=== PATIENT | female | born 1965 | race Caucasian/White ===

== ENCOUNTER → 2024-04-14 12:42 | Outpatient (REF) | payer BC, SELFPAY | LOC: HWRAD 12:42 | PROVIDERS: ATTENDING PHYSICIAN Nurse Practitioner Primary Care | DX: F17.211 Nicotine dependence, cigarettes, in remission (principal); F17.290 Nicotine dependence, other tobacco product, uncomplicated; Z80.1 Family history of malignant neoplasm of trachea, bronchus and lung; R63.4 Abnormal weight loss | CPT/HCPCS: 71260; 74177; Q9967 ==

== ENCOUNTER → 2024-05-03 18:23 | Outpatient (REF) | payer BC, SELFPAY | LOC: RCS 18:23 | PROVIDERS: ATTENDING PHYSICIAN Nurse Practitioner Primary Care; FAMILY PHYSICIAN Internal Medicine Geriatric Medicine | DX: F17.211 Nicotine dependence, cigarettes, in remission (principal); E78.2 Mixed hyperlipidemia; J44.9 Chronic obstructive pulmonary disease, unspecified; R07.89 Other chest pain | CPT/HCPCS: 93306 ==

== ENCOUNTER → 2024-05-04 07:05 | Outpatient (REF) | payer BC, SELFPAY ==
[2024-05-04] MEDS: FLUSH (NSS) 1 FLUSH IV (08:50)
[2024-05-04] MEDS: LEXISCAN 0.400000000000000022 MG IV (08:50)
== END ==
LOC: RCS 07:05
PROVIDERS: ATTENDING PHYSICIAN Nurse Practitioner Primary Care; FAMILY PHYSICIAN Internal Medicine Geriatric Medicine
DX: J44.9 Chronic obstructive pulmonary disease, unspecified (principal); E78.2 Mixed hyperlipidemia; R07.89 Other chest pain; F17.211 Nicotine dependence, cigarettes, in remission
CPT/HCPCS: 78452; 93017; A9500; J2785

== ENCOUNTER → 2024-05-09 06:24 | Day surgery (SDC) | payer BC, SELFPAY | LOC: GI 06:24 | PROVIDERS: ATTENDING PHYSICIAN Internal Medicine Gastroenterology | DX: Z12.11 Encounter for screening for malignant neoplasm of colon (principal); K62.1 Rectal polyp; D12.0 Benign neoplasm of cecum; R63.4 Abnormal weight loss; D49.0 Neoplasm of unspecified behavior of digestive system; K57.30 Diverticulosis of large intestine without perforation or abscess without bleeding; R13.10 Dysphagia, unspecified; K22.89 Other specified disease of esophagus; K31.89 Other diseases of stomach and duodenum; K29.50 Unspecified chronic gastritis without bleeding; K31.A19 Gastric intestinal metaplasia without dysplasia, unspecified site; K22.70 Barrett's esophagus without dysplasia; K64.8 Other hemorrhoids | CPT/HCPCS: 45380; 43239; 88305; 88342 ==

== ENCOUNTER 2024-06-23 06:02 | Inpatient (IN) | payer BC, SELFPAY ==
[2024-06-08 10:13] LABS: Hematocrit 38.1 % (37.0-47.0); Hemoglobin 13.5 g/dL (12.0-16.0); Mean Corp Hgb Conc. 35.4 g/dL (33.0-37.0); Mean Corpuscular Hgb 33.3 pg (27.0-31.0); Mean Corpuscular Volume 93.8 fL (81.0-99.0); Mean Platelet Volume 11.1 fL (7.4-10.4); Platelet Count 200 10^3/uL (130-400); Red Blood Cell Count 4.06 10^6/uL (4.20-5.40); White Blood Cell Count 4.5 10^3/uL (4.8-10.8)
[2024-06-08 10:29] LABS: INR 0.89; PT 12.1 Sec (11.4-14.6)
[2024-06-08 10:30] LABS: APTT 27.7 Sec (23.4-35.0)
[2024-06-08 10:54] VITALS: BMI 24.2
[2024-06-08 11:04] LABS: Glycohemoglobin (HgbA1c) 5.1 % (4.0-5.6)
[2024-06-08 12:16] LABS: ALT (SGPT) 33 U/L (0-35); AST (SGOT) 39 U/L (14-36); Albumin 4.9 g/dl (3.5-5.0); Alkaline Phosphatase 69 U/L (38-126); Blood Urea Nitrogen 14 mg/dl (7-17); Calcium 9.9 mg/dl (8.4-10.2); Carbon Dioxide 24 mmol/L (22-30); Chloride 107 mmol/L (98-107); Estimated Creatinine Clearance 77 ml/min; Glucose 90 mg/dl (70-99); Potassium 4.6 mmol/L (3.5-5.1); Sodium 140 mmol/L (135-145); Total Bilirubin 0.5 mg/dl (0.2-1.3); Total Protein 7.3 g/dl (6.3-8.2); eGFR > 60.00
[2024-06-23] VITALS (14 sets, daily range): BP systolic 100–134; BP diastolic 53–79; BMI 24.3
[2024-06-23] MEDS: NORMOSOL-R 1000 IV ×3 (06:40→21:56)
[2024-06-23] MEDS: TYLENOL 1000 MG PO (06:43)
[2024-06-23] MEDS: ENTEREG 12 MG PO (06:43)
[2024-06-23] MEDS: HEPARIN 5000 UNITS SC (06:43)
--- NOTE | 2024-06-23 11:02 | W.IMMPOSTOP ---
Addendum entered and electronically signed by Willie Clement MD 06/23/24 11:17:
~15mm benign appearing lesion on the right lateral abdominal wall excised with grossly negative margins and sent for pathology
Original Note:
Surgical Immed Post Op Note
-
Primary Surgeon: Carlos Clement MD
Assistants: GLORY Ross & YASMIN Estrada
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
Post-op Diagnosis: Same
Procedure Performed: Robotic right colectomy with isosperistaltic intracorporeal anastomosis
Anesthesia Type: GET
Specimen / Cultures: Right colon and portion of the omentum
Estimated Blood Loss: 15cc
Complications: None
Operative Findings: No evidence of metastatic disease
Patient's family updated.
--- NOTE | 2024-06-23 11:06 | SUR.PHASEI ---
Rec'd unresponsive in bed flat, oral airway in mary well
--- NOTE | 2024-06-23 11:19 | SUR.PHASEI ---
More alert, very sleepy, airway out mary well, oriented x 3 by RN, reassured
--- NOTE | 2024-06-23 11:36 | SUR.PHASEI ---
arouses easily, denites pain c/obeing cold, warm blankets given mary well
[2024-06-23] MEDS: DILAUDID 0.25 MG IV (11:41)
--- NOTE | 2024-06-23 11:48 | SUR.PHASEI ---
More alert, quickly falls back to sleep, med for pain mary well
--- NOTE | 2024-06-23 12:02 | SUR.PHASEI ---
sleeping arouses easily, comfortable, report to [facility] lunch relief
[2024-06-23] MEDS: TORADOL 15 MG IV ×3 (12:53→23:53)
[2024-06-23] MEDS: TYLENOL 650 MG PO ×4 (12:53→23:53)
--- NOTE | 2024-06-23 13:07 | PTCARENOTE ---
Patient received from PACU in bed; IVF infusing; Patient on 2L nasal cannula, now on room air; Patient states pain is severe, see MAR; Patient denies nausea/vomiting at this time; Four laparoscopic sites and one low transverse abdominal incision
open to air with surgical glue present; Patient alert to self, place, and time; Patient is cooperative but intermittently agitated when being asked questions for admission, states 'these are questions you ask people when they have cancer', patient
informed that admission questions are standard and every person admitted to the hospital is asked these questions regardless of diagnosis; When asked admission questions regarding alcohol consumption patient stated she goes to happy hour every day,
states she drinks at least four drinks per day but sometimes more, patient denies being treated for alcohol withdrawal in the past; Patient states 'I am going through a lot right now'; Patient denies suicidal and homicidal ideation; Dr. Clement
notified of alcohol consumption per protocol, MSAS initiated; Call dai within reach; Bed in lowest position, wheels locked; Assessment ongoing
[2024-06-23] MEDS: DILAUDID 0.5 MG IV ×2 (14:28→20:28)
[2024-06-23] MEDS: FOLVITE 1 MG PO (14:28)
[2024-06-23] MEDS: THIAMINE INJECTION 200 MG IV (20:29)
[2024-06-24] VITALS (7 sets, daily range): BP systolic 88–108; BP diastolic 44–59; BMI 25.7
[2024-06-24] MEDS: DILAUDID 0.5 MG IV (00:30)
[2024-06-24] MEDS: TYLENOL PO (05:08)
[2024-06-24] MEDS: TORADOL 15 MG IV ×4 (06:17→22:51)
[2024-06-24] MEDS: DILAUDID 0.25 MG IV ×2 (06:22→13:37)
[2024-06-24 07:06] LABS: % Basophils 0.3 % (0-2); % Eosinophils 0.1 % (0-6); % Immature Granulocytes 0.3 % (0-0.5); % Lymphocytes 25.5 % (20.5-51.1); % Monocytes 8.2 % (1.7-9.3); % Neutrophils 65.6 % (42.2-75.2); Absolute Lymphocytes 1.8 10^3/uL (1.2-3.4); Absolute Monocytes 0.6 10^3/uL (0.1-0.6); Absolute Neutrophils 4.5 10^3/uL (1.4-6.5); Hematocrit 28.5 % (37.0-47.0); Hemoglobin 10.1 g/dL (12.0-16.0); Mean Corp Hgb Conc. 35.4 g/dL (33.0-37.0); Mean Corpuscular Hgb 33.7 pg (27.0-31.0); Nucleated Red Blood Cells % 0 %; Platelet Count 174 10^3/uL (130-400); Red Cell Dist. Width 12.2 % (11.5-14.5); White Blood Cell Count 6.9 10^3/uL (4.8-10.8)
[2024-06-24 07:16] LABS: Blood Urea Nitrogen 4 mg/dl (7-17); Calcium 8.8 mg/dl (8.4-10.2); Carbon Dioxide 24 mmol/L (22-30); Chloride 104 mmol/L (98-107); Estimated Creatinine Clearance 77 ml/min; Glucose 98 mg/dl (70-99); Magnesium 2.2 mg/dl (1.6-2.3); Phosphorus 3.6 mg/dl (2.5-4.5); Potassium 3.9 mmol/L (3.5-5.1); Sodium 134 mmol/L (135-145); eGFR > 60.00
[2024-06-24] MEDS: NORMOSOL-R 1000 IV (07:32)
[2024-06-24] MEDS: PROTONIX 40 MG PO (07:34)
[2024-06-24] MEDS: TYLENOL 650 MG PO ×5 (07:34→22:51)
[2024-06-24] MEDS: ENTEREG 12 MG PO ×2 (07:34→20:42)
[2024-06-24] MEDS: LOW STRENGTH ASPIRIN 81 MG PO (07:35)
[2024-06-24] MEDS: THIAMINE INJECTION 200 MG IV ×2 (07:35→20:41)
[2024-06-24] MEDS: FOLVITE 1 MG PO (07:35)
[2024-06-24] MEDS: SYMBICORT 80/4.5 MCG INHALER 2 PUFF INH ×2 (08:08→18:08)
--- NOTE | 2024-06-24 09:34 | CM ---
CM met with pt at bedside.
Prior to admission pt resides alone in a three story dwelling with few steps to enter.
Ind with adls, ind with ambulation using no AD. No DME in home. + [employer].
PCP is Bethany Bryant and pharmacy is [facility] [phone]
Pt reports drinking daily after passing away one year ago. Drinks beer daily. Declines to report how many, shares has been slowing down. Declines etoh abuse resources. Denies hx of etoh rehab. CM left contact info should pt reconsider.
Reports having family (sisters) and friend support at pr.
Discharge dispo home no needs.
--- NOTE | 2024-06-24 11:48 | W.PN.CRS1 ---
Today's Communication / Plan
-
Advance diet
Assessment/Plan
-
58 yo female with a neoplastic polyp at the appendicial orifice now POD #1 Robotic right colectomy with isoperistaltic intracorporeal anastomosis
AFVSS
Tolerating clears
Doing well post op
--Advance to LRD
--D/C ortiz for voiding trial
--D/C IVF
--Multimodal analgesics
--Daily etoh by hx: continue CIWA protocol/thiamine/folic acid
--Lovenox and SCDs for VTE ppx
Tentative d/c later today vs tomorrow pending diet tolerance and pain control
Subjective Data
Procedure
Robotic right colectomy with isoperistaltic intracorporeal anastomosis
Subjective Data
Date of Service: June 24, 2024
Patient seen and examined at bedside with Dr. Clement. Gagan n/v. Doing well with clears. ABD discomfort minimal. Passing flatus
Objective Data
-
Vital Signs
Temp Pulse Resp BP Pulse Ox
98.4 F 58 14 96/59 99
06/24/24 07:30 06/24/24 08:12 06/24/24 08:12 06/24/24 07:30 06/24/24 08:12
Intake & Output
06/23/24 06/24/24 06/25/24
06:59 06:59 06:59
Intake Total 3745 / 3745 400 / 400
Output Total 3150 / 3150 300 / 300
Balance 595 / 595 100 / 100
Intake:
Oral fluids 3120 / 3120
IV fluids (Total) 625 / 625 400 / 400
Normosol-R 1,000 ml @ 100 mls/ 25 / 25
hr IV .Q10H VINICIO Rx#:[id number]
Output:
Urine, Ortiz 3150 / 3150 300 / 300
Lab Results
06/24/24 06:23
06/24/24 06:23
Physical Exam
-
General: No Acute Distress
Abdomen: Soft, Non Distended and Tender (minimal to lower incisions)
Skin: Warm and Dry
Wound: No Signs of Infection and Dressing in Place (dermabond intact)
[2024-06-24] MEDS: LOVENOX 40 MG SC (17:30)
[2024-06-24] MEDS: ULTRAM 50 MG PO (17:50)
[2024-06-24] MEDS: FLUSH (NSS) 2 FLUSH IV (20:42)
[2024-06-25] MEDS: TYLENOL PO (05:13)
[2024-06-25 06:00] VITALS: BMI 26.3
[2024-06-25] MEDS: TORADOL 15 MG IV ×2 (06:11→12:11)
[2024-06-25] MEDS: ULTRAM 50 MG PO ×2 (06:11→12:11)
[2024-06-25 07:17] VITALS: BP 115/57
[2024-06-25] MEDS: ENTEREG 12 MG PO (07:54)
[2024-06-25] MEDS: PROTONIX 40 MG PO (07:54)
[2024-06-25] MEDS: FOLVITE 1 MG PO (07:54)
[2024-06-25] MEDS: THIAMINE INJECTION 200 MG IV (07:56)
[2024-06-25] MEDS: TYLENOL 650 MG PO ×2 (07:56→12:11)
[2024-06-25] MEDS: LOW STRENGTH ASPIRIN 81 MG PO (07:56)
[2024-06-25] MEDS: SYMBICORT 80/4.5 MCG INHALER INH (11:02)
--- NOTE | 2024-06-25 12:48 | W.PN.CRS1 ---
Today's Communication / Plan
-
Discharge
Assessment/Plan
-
58 yo female with a neoplastic polyp at the appendicial orifice now POD #2 Robotic right colectomy with isoperistaltic intracorporeal anastomosis
AFVSS
Tolerating clears
Doing well post op
-- Okay for discharge. I reviewed diet, activity, medications, wound care and follow-up.
-- Final path is pending
Subjective Data
Procedure
Robotic right colectomy with isoperistaltic intracorporeal anastomosis
Subjective Data
Date of Service: June 25, 2024
She stayed last night due to some abdominal discomfort. She feels much better today and wishes to go home. She is tolerating a low residue diet and her bowels are functioning.
Objective Data
-
Vital Signs
Temp Pulse Resp BP Pulse Ox
98.8 F 66 16 115/57 95
06/25/24 07:17 06/25/24 07:17 06/25/24 07:17 06/25/24 07:17 06/25/24 08:00
Intake & Output
06/24/24 06/25/24 06/26/24
06:59 06:59 06:59
Intake Total 3745 / 3745 2800 / 2800
Output Total 3150 / 3150 1700 / 1700
Balance 595 / 595 1100 / 1100
Intake:
Oral fluids 3120 / 3120 2400 / 2400
IV fluids (Total) 625 / 625 400 / 400
Normosol-R 1,000 ml @ 100 mls/ 25 / 25
hr IV .Q10H VINICIO Rx#:[id number]
Output:
Urine, Roman 3150 / 3150 300 / 300
Urine, Voided 1400 / 1400
Other:
How many times incontinent 1
MODERATE amount urine
Lab Results
06/24/24 06:23
06/24/24 06:23
Physical Exam
-
General: No Acute Distress
Abdomen: Soft, Non Distended and Non Tender
Extremities: No Calf Tenderness
Wound: No Signs of Infection
--- NOTE | 2024-06-25 12:50 | W.DS.TRANS ---
Addendum entered and electronically signed by SHERRILL Sellers 06/30/24 09:53:
dictated #[id number]
Original Note:
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
-
Discharge Instructions:
Discharge Diagnosis/Procedures Robotic right colectomy
Diet Low Fiber
Activity No strenuous activity
Additional Activity Do not lift over 10lbs
Driving Restrictions No driving for 24 hours
Bathing Restrictions OK to Shower
Wound Care Ok to shower and wash incisions gently with soap
and water. Allow the glue to flake off on its
own over the next 2-3 weeks
Instructions:
Stand-Alone Forms:
Changes to Home Medications: No
Discharge Medications:
DC Medications w/original date entered in [facility]
albuterol sulfate 90 mcg/actuation aerosol inhaler 2 puff inhalation QID PRN sob 06/01/24
aspirin 81 mg capsule 81 mg PO DAILY Blood Clot Prevention/Tx 06/01/24
collagen 1 dose PO DAILY Supplement 06/01/24
fluticasone furoate 50 mcg-vilanterol 25 mcg/dose inhalation powder (Breo Ellipta) 1 ea inhalation DAILY Lung/Breathing Issues 06/01/24
multivitamin 1 tab PO DAILY Supplement 06/01/24
omeprazole 40 mg capsule,delayed release 40 mg PO DAILY Gastrointestinal Issue 06/01/24
rosuvastatin 20 mg tablet 20 mg PO DAILY High Cholesterol 06/01/24
acetaminophen 325 mg tablet 650 mg (2 x 325 mg) PO Q4HPRN PRN mild pain #1 tab 06/25/24
ibuprofen 200 mg tablet 400 - 600 mg (2 - 3 x 200 mg) PO Q6HPRN PRN moderate pain #1 tab 06/25/24
tramadol 50 mg tablet 25 - 50 mg (0.5 - 1 x 50 mg) PO Q6HPRN PRN severe pain/breakthrough pain #20 tabs 06/25/24
Home Medication Changes
Pending Results: Yes
Additional Pending Results:
Pathology
[2024-06-25 14:00] VITALS: BP 112/59
--- NOTE | 2024-06-25 15:11 | CM ---
Patient who is s/p Robotic right colectomy.
Spoke with patient who was preparing for discharge. The patient says she feels ready for discharge home today. Her friend Beba will provide transport home.
No CM d/c needs identified.
Plan home today.
== END 2024-06-25 14:58 | disposition home or self-care (01) | DRG 331 ==
LOC: 2 SOUTH 06:02
PROVIDERS: ADMITTING PHYSICIAN Surgery; FAMILY PHYSICIAN Nurse Practitioner Primary Care
PROC: 8E0W4CZ Robotic Assisted Procedure of Trunk Region, Percutaneous Endoscopic Approach (ICD-10-PCS; 2024-06-23)
PROC: 0DTF4ZZ Resection of Right Large Intestine, Percutaneous Endoscopic Approach (ICD-10-PCS; 2024-06-23)
DX: D12.6 Benign neoplasm of colon, unspecified (principal); J44.9 Chronic obstructive pulmonary disease, unspecified; K66.0 Peritoneal adhesions (postprocedural) (postinfection); E78.5 Hyperlipidemia, unspecified; Z83.6 Family history of other diseases of the respiratory system; Z80.1 Family history of malignant neoplasm of trachea, bronchus and lung; Z82.49 Family history of ischemic heart disease and other diseases of the circulatory system; Z79.51 Long term (current) use of inhaled steroids; Z79.82 Long term (current) use of aspirin; Z86.16 Personal history of COVID-19
CPT/HCPCS: 88305; 88307; 36415; 80048; 80053; 82378; 83036; 83735; 84100; 85025; 85027; 85610; 85730; 86850; 86900; 86901; 87070; 93005; 94640; J1335

== ENCOUNTER → 2024-07-26 12:42 | Outpatient (REF) | payer BC, SELFPAY | LOC: WDC 12:42 | PROVIDERS: ATTENDING PHYSICIAN Nurse Practitioner Primary Care | DX: Z12.31 Encounter for screening mammogram for malignant neoplasm of breast (principal) | CPT/HCPCS: 77063; 77067 ==

== ENCOUNTER → 2025-07-06 10:37 | Outpatient (REF) | payer BC, SELFPAY | LOC: HWRAD 10:37 | PROVIDERS: ATTENDING PHYSICIAN Nurse Practitioner Primary Care | DX: F17.210 Nicotine dependence, cigarettes, uncomplicated (principal); M54.50 Low back pain, unspecified | CPT/HCPCS: 71271; 72110 ==